=== PATIENT | female | born 2000 | race Asian ===

== ENCOUNTER 2024-12-25 15:10 | Emergency (ER) | payer OTHER ==
[~2024-12-25] VITALS: Ht 157.5 cm; Wt 55.0 kg
[2024-12-25 15:16] VITALS: BP 100/62; PULSE 97; RESP 16; TEMP 99.3; O2SAT 99
[2024-12-25 15:47] LABS: BASOPHILS % (AUTO) 0.4 % (0.0-2.0); EOSINOPHILS % (AUTO) 0.5 % (1.0-6.0); HEMATOCRIT 39.9 % (36-46); HEMOGLOBIN 12.9 g/dL (12.0-16.0); LYMPHOCYTES # (AUTO) 0.6 K/uL (1.0-4.8); LYMPHOCYTES % (AUTO) 11.8 % (22.0-44.0); MEAN CORPUSCULAR HEMOGLOBIN 27.2 pg (26.0-34.0); MEAN CORPUSCULAR HGB CONC 32.2 G/dL (31.0-37.0); MEAN CORPUSCULAR VOLUME 84 fL (80-100); MONOCYTES # (AUTO) 0.5 K/uL (0.1-1.0); MONOCYTES % (AUTO) 10.1 % (2.0-9.0); NEUTROPHILS # (AUTO) 4.1 K/uL (1.8-7.7); NEUTROPHILS % (AUTO) 77.2 % (40.0-70.0); PLATELET COUNT (AUTO) 194 K/uL (150-450); RED BLOOD CELL COUNT(AUTO) 4.73 MIL/uL (4.00-5.20); RED CELL DISTRIBUTION WIDTH 14.5 % (11.5-14.5); WHITE BLOOD COUNT (AUTO) 5.3 K/uL (4.5-11.0)
[2024-12-25 15:55] LABS: ANION GAP 5 mmol/L (8-16); CALCIUM, TOTAL 8.9 mg/dL (8.8-10.5); CARBON DIOXIDE 31 mmol/L (22-29); CHLORIDE 104 mmol/L (98-107); CREATININE 0.72 mg/dL (0.60-1.30); GLOMERULAR FILTR. RATE CALC > 60 mL/min (>60); GLUCOSE,RANDOM 98 mg/dL (70-110); POTASSIUM 4.2 mmol/L (3.5-5.1); SODIUM SERUM 140 mmol/L (136-145); UREA NITROGEN, BLOOD 9 mg/dL (7-18)
[2024-12-25 15:56] LABS: COVID AG,FIA SOURCE NASAL SWAB
[2024-12-25 16:15] LABS: SARS-COV2 (COVID) ANTIGEN,FIA Negative (Negative)
[2024-12-25 16:18] LABS: INFLUENZA TYPE B NEGATIVE FOR TYPE B (NEGATIVE)
[2024-12-25 16:26] LABS: INFLUENZA TYPE A POSITIVE FOR TYPE A (NEGATIVE)
[2024-12-25] MEDS ORDERED: BENZ-227 PO (18:55)
[2024-12-25] MEDS ORDERED: OSEL75CA45 PO (18:55)
== END 2024-12-25 19:02 | disposition home or self-care (01) ==
LOC: EMS 15:10
DX: J11.1 Influenza due to unidentified influenza virus with other respiratory manifestations (principal); Z20.822 Contact with and (suspected) exposure to COVID-19
CPT/HCPCS: 80048; 85025; 87804; 99283

== ENCOUNTER 2025-04-25 19:22 | Emergency (ER) | payer OTHER ==
[~2025-04-25] VITALS: Ht 157.5 cm; Wt 57.7 kg
[~2025-04-25 19:22] MED LIST: BENZ-227 PO; OSEL75CA45 PO
[2025-04-25 19:37] VITALS: TEMP 98
[2025-04-25] MEDS: methocarbamoL 500 MG TABLET PO ONE (21:30)
[2025-04-25] MEDS: LIDOCAINE 5% TRANSDERMAL PATCH TD ONE (21:30)
[2025-04-25] MEDS: PredniSONE 20 MG TABLET PO ONE (21:30)
[2025-04-25] MEDS: HYDROCODONE/ACETAMINOPHEN 5-325 MG TABLET PO ONE (22:18)
[2025-04-25 22:46] VITALS: BP 111/76; PULSE 88; RESP 18; O2SAT 100
[2025-04-25] MEDS ORDERED: PRED-554 PO (22:48)
[2025-04-25] MEDS ORDERED: CYCL-448 PO (22:48)
[2025-04-25] MEDS ORDERED: HYDR-4062 PO (22:48)
[2025-04-25] MEDS ORDERED: IBUP-1492 PO (22:48)
== END 2025-04-25 23:23 | disposition home or self-care (01) ==
LOC: EMS 19:22
DX: S39.012A Strain of muscle, fascia and tendon of lower back, initial encounter (principal); Z79.52 Long term (current) use of systemic steroids; Z79.899 Other long term (current) drug therapy; X58.XXXA Exposure to other specified factors, initial encounter; Y93.89 Activity, other specified; Y92.89 Other specified places as the place of occurrence of the external cause; Y99.0 Civilian activity done for income or pay
CPT/HCPCS: 99284; J7512